=== PATIENT | male | born 1990 | race Caucasian/White ===

== ENCOUNTER 2020-08-25 15:32 | Emergency (ER) | payer BC ==
[~2020-08-25] VITALS: Ht 170.2 cm; Wt 77.0 kg
[2020-08-25 16:20] LABS: BASOPHILS % 0.5 % (0.0-2.0); EOSINOPHILS % 1.4 % (0.0-5.0); HEMATOCRIT. 44.5 % (42.0-52.0); HEMOGLOBIN. 14.2 g/dL (14.0-18.0); LYMPHOCYTES % 25.6 % (20.0-50.0); MEAN CORPUSCULAR HEMOGLOBIN 22.7 pg (28.0-32.0); MONOCYTES % 7.1 % (2.0-8.0); NEUTROPHILS % 65.4 % (40.0-76.0); PLATELET 284 x1000/uL (130-400); RED BLOOD CELL COUNT 6.27 mill/uL (4.7-6.1)
[2020-08-25 16:43] LABS: CHLORIDE 105 mEq/L (98-107)
[2020-08-25 16:48] LABS: ETHANOL BLOOD < 10 mg/dL
[2020-08-25] MEDS ORDERED: SODIUM CHLORIDE 0.9% 1,000 ML IV ONE (17:00)
[2020-08-25] MEDS ORDERED: LEVETIRACETAM 1000MG PREMIX 100 ML IV ONE (17:00)
[2020-08-25 17:48] LABS: CLARITY URINE CLEAR (CLEAR); COLOR URINE YELLOW (YELLOW); KETONES URINE NEGATIVE (NEGATIVE); LEUKOCYTE ESTERASE URINE NEGATIVE (NEGATIVE); NITRITE URINE NEGATIVE (NEGATIVE); OCCULT BLOOD URINE NEGATIVE (NEGATIVE); PH URINE 6.5 (4.5-8.0); PROTEIN URINE NEGATIVE (NEGATIVE); SPECIFIC GRAVITY URINE 1.025 (1.005-1.030); UROBILINOGEN URINE 0.2 E.U./dL (0.2-1.0)
[2020-08-25 18:10] VITALS: BP 138/78
[2020-08-25 18:42] LABS: *COCAINE SCREEN URINE NEGATIVE (NEGATIVE); METHADONE URINE SCREEN NEGATIVE (NEGATIVE); OPIATES URINE SCREEN NEGATIVE (NEGATIVE); PHENCYCLIDINE URINE SCREEN NEGATIVE (NEGATIVE)
[2020-08-25 18:43] LABS: *AMPHETAMINES SCREEN URINE NEGATIVE (NEGATIVE); *BARBITURATES SCREEN URINE NEGATIVE (NEGATIVE); *BENZODIAZEPINES SCREEN URINE NEGATIVE (NEGATIVE); CANNABINOID URINE SCREEN NEGATIVE (NEGATIVE)
== END 2020-08-25 18:30 | disposition home or self-care (01) ==
LOC: ER 15:32
DX: G40.909 Epilepsy, unspecified, not intractable, without status epilepticus (principal); E11.9 Type 2 diabetes mellitus without complications
CPT/HCPCS: 36415; 80053; 80305; 80320; 81003; 85025; 93005; 96365; 99284; J1953; G0480